=== PATIENT | male | born 1970 | race African-American/Black ===

== ENCOUNTER 2021-06-28 09:43 | Emergency (ER) | payer OTHER, BC, SELFPAY ==
[2021-06-28 10:04] VITALS: BP 140/78; PULSE 80; RESP 16; TEMP 36.2; O2SAT 100
--- NOTE | 2021-06-28 10:11 | ED.HA ---
HPI - Headache General Chief Complaint: Headache Stated Complaint: Headache Time Seen by Provider: 06/28/21 10:11 Source: patient Mode of arrival: ambulatory Limitations: no limitations History of Present Illness HPI Narrative: 51-year-old male presents with complaint of headaches for 2 weeks. Also reports right-sided dental pain for 1 week. Has not followed up with dentist or his primary care physician. States that 3 weeks ago he dropped a 40 pound dumbbell on his head when he was laying in bed doing arm worked out. No LOC. Was not having any headaches at that time. Reports that headache started a week after the injury. He has continued to go to work daily. states due to headache pain he has been squinting when he driving. Decided that he needed to be seen today to see what is going on with the headaches. He has been taking [id number] Tylenol to treat his pain. He has no URI complaints. He is alert and oriented. No nausea vomiting. No vision changes. Ambulatory with steady gait. No complaints of weakness or numbness to extremities. He is friendly and talkative. Does not appear to be in any pain. Patient saw a coworker while past neutral or in hallway and even yelled out several times hello' to him. Is requesting a work note. All systems reviewed and negative except as noted above. Related Data Allergies Allergy/AdvReac Type Severity Reaction Status Date / Time No Known Allergies Allergy Verified 06/28/21 10:23 Review of Systems Review of Systems: CONSTITUTIONAL: Denies fever, chills, or sweats. EYES: Denies visual changes, redness, or discharge. ENT: Denies rhinorrhea, congestion, sore throat, or otalgia. Reports right upper and lower dental pain. CARDIOVASCULAR: Denies chest pain, palpitations, or edema. RESPIRATORY: Denies cough or dyspnea. GASTROINTESTINAL: Denies abdominal pain, nausea, vomiting, or diarrhea. GENITOURINARY: Denies dysuria or hematuria. SKIN: Denies rash or itching. MUSCULOSKELETAL: Denies back pain, joint pain, or myalgia. NEUROLOGIC: Reports headache. Denies numbness, or weakness. PSYCHIATRIC: Denies anxiety or depression. All other systems reviewed are negative, except as documented in HPI. COMMUNITY [facility]ALTH Comments At time of signature, agree with nursing past medical, surgical, social and family history. There is no relevant family history pertinent to the presenting complaint. Exam Narrative: GENERAL: This is a well-nourished, well-developed patient, in no apparent distress. HEAD: normocephalic, atraumatic. EYES: PERRL. Sclera clear/white. Vision is grossly intact. EARS: External ears normal, auditory canals clear and without drainage, TMs normal without perforation. Hearing grossly intact. NOSE: External nose normal with no obvious nasal discharge, nares without redness, no rhinorrhea. THROAT: Mucous membranes moist, posterior pharynx clear. MOUTH: multiple caps and fillings to teeth. receding gums, exposed tooth # 30 and #3. no swelling, erythema or fluctuance to gums. NECK: Neck supple, non-tender without lymphadenopathy, masses or thyromegaly. CARDIOVASCULAR: Regular rate and rhythm without murmurs, gallops, or rubs. RESPIRATORY: Clear to auscultation. Breath sounds equal bilaterally. No wheezes, rales, or rhonchi. SKIN: warm, Dry, intact with no suspicious lesions or rash, good texture and turgor. NEURO: awake, alert, and oriented to person, place and time. There were no obvious focal neurologic abnormalities. EXTREMITIES: No joint tenderness, effusion, or edema noted. 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 All extremities strength 5 out of 5. Course Course Level of Care: Express Care Visit Vital Signs Vital signs: Vital Signs Temperature 36.2 C L 06/28/21 10:04 Pulse Rate 80 06/28/21 10:04 Respiratory Rate 16 06/28/21 10:04 Blood Pressure 140/78 06/28/21 10:04 Pulse Oximetry 100 06/28/21 10:04 Temperature 36.2 C L 06/28/21 10:04 Pulse Rate 80 06/28/21 10:04 Respirato
== END 2021-06-28 10:28 | disposition home or self-care (01) ==
PROVIDERS: Emergency Provider Nurse Practitioner Family
DX: K04.7 Periapical abscess without sinus (principal); R51.9 Headache, unspecified
CPT/HCPCS: 99203; G0463